=== PATIENT | female | born 1975 | race Caucasian/White ===

== ENCOUNTER 2018-07-30 20:53 | Emergency (ER) | payer SELFPAY ==
[~2018-07-30] VITALS: Ht 154.9 cm; Wt 85.5 kg
[2018-07-30 21:00] VITALS: BP 147/103; PULSE 96; RESP 18; Ht 154.9 cm; Wt 85.5 kg
== END 2018-07-31 00:06 | disposition left against medical advice (07) ==
LOC: FTE 20:53
DX: Z53.21 Procedure and treatment not carried out due to patient leaving prior to being seen by health care provider (principal)